=== PATIENT | female | born 1995 | race Caucasian/White ===

== ENCOUNTER 2020-06-06 08:31 | Day surgery (SDC) | payer OTHER, SELFPAY ==
[~2020-06-06] VITALS: Ht 167.6 cm; Wt 56.7 kg
[2020-06-06] MEDS ORDERED: BUPIVACAINE MPF 0.25% 10 ML VIAL INJ ONE (09:42)
[2020-06-06] MEDS ORDERED: LIDOCAINE 1% 500 MG/50 ML VIAL ONE ×2 (09:42)
[2020-06-06] MEDS ORDERED: BUPIVACAINE-MPF 0.25% 30 ML VIAL INJ ONE (10:50)
[2020-06-06] MEDS ORDERED: KETOROLAC 30 MG/ML VIAL ONE (11:00)
[2020-06-06] MEDS ORDERED: DEXAMETHASONE 4 MG/ML VIAL ONE (11:00)
[2020-06-06] MEDS ORDERED: MIDAZOLAM 2 MG/2 ML VIAL ONE (11:00)
[2020-06-06] MEDS ORDERED: MEPERIDINE 50 MG/ML SYR ONE (11:00)
[2020-06-06] MEDS ORDERED: ONDANSETRON 4 MG/2 ML VIAL ONE (11:00)
[2020-06-06] MEDS ORDERED: SUGAMMADEX SODIUM 200 MG/2 ML VIAL IV ONE (11:00)
[2020-06-06] MEDS ORDERED: fentaNYL citrate 0.05 MG/ML VIAL ONE (11:00)
[2020-06-06] MEDS ORDERED: ROCURONIUM 50 MG/5 ML VIAL IV ONE (11:00)
[2020-06-06] MEDS ORDERED: SUCCINYLCHOLINE CHLORIDE 200 MG/10 ML VIAL IVP ONE (11:00)
[2020-06-06] MEDS ORDERED: PROPOFOL 200 MG/20 ML VIAL IV ONE (11:00)
[2020-06-06] MEDS ORDERED: SEVOFLURANE 250 ML BTL INH ONE (11:00)
[2020-06-06] MEDS ORDERED: BUPIVACAINE-MPF/EPI 0.25% 10 ML VIAL INJ ONE (11:26)
[2020-06-06] MEDS ORDERED: ONDANSETRON 4 MG/2 ML VIAL IVP PRN (11:45)
[2020-06-06] MEDS ORDERED: LACTATED RINGERS 1,000 ML IV SCH (11:45)
[2020-06-06] MEDS ORDERED: HYDROmorphone 1 MG/ML AMP IVP PRN (11:45)
[2020-06-06] MEDS ORDERED: MEPERIDINE 25 MG/ML SYR IVP PRN (11:45)
[2020-06-06] MEDS ORDERED: diphenhydrAMINE 50 MG/ML VIAL IVP PRN (11:45)
== END 2020-06-06 13:38 | disposition home or self-care (01) ==
LOC: MMU 08:31 → MDS 08:31
PROVIDERS: ATTEND Surgery
DX: K80.10 Calculus of gallbladder with chronic cholecystitis without obstruction (principal); E03.9 Hypothyroidism, unspecified; Z20.828 Contact with and (suspected) exposure to other viral communicable diseases
CPT/HCPCS: 36415; 47562; 71045; 82374; 86886; 86900; 86901; J0330; J0690; J1100; J1885; J2001; J2175; J2250; J2405; J2704; J3010; J3490; J7030; J7060; U0003

== ENCOUNTER 2021-06-18 20:28 | Emergency (ER) | payer OTHER ==
[~2021-06-18] VITALS: Ht 167.6 cm; Wt 53.1 kg
[2021-06-18 20:38] VITALS: BP 136/71
--- NOTE | 2021-06-18 20:43 | NUR ---
PATIENT TO THE BATHROOM FOR URINE COLLECTION
--- NOTE | 2021-06-18 20:46 | NUR ---
PATIENT TO [facility]
--- NOTE | 2021-06-18 22:05 | NUR ---
SEEN AND EXAMINED BY ERMD WITH ORDERS, AND CARRED OUT.
--- NOTE | 2021-06-18 23:26 | NUR ---
PT TO [facility]
[2021-06-18] MEDS ORDERED: IBUP-2213 PO (23:29)
[2021-06-18] MEDS ORDERED: LIDOCAINE MPF 1% 10 MG/ML VIAL INJ ONE (23:35)
[2021-06-18] MEDS ORDERED: KETOROLAC 60 MG/2 ML VIAL IM ONE (23:40)
--- NOTE | 2021-06-18 23:50 | NUR ---
MEDICATED PER [facility]MDS ORDER, TOLERATED WELL,
[2021-06-19 00:20] VITALS: BP 120/71
--- NOTE | 2021-06-19 00:20 | NUR ---
Patient discharged with v/s stable. Written and verbal after care instructions given and explained. Patient alert, oriented and verbalized understanding of instructions. Ambulatory with steady gait. All questions addressed prior to discharge. ID band removed. Patient advised to follow up with PMD. Rx of MOTRIN 600MG given. Patient educated on indication of medication including possible reaction and side effects. Opportunity to ask questions provided and answered.
== END 2021-06-19 00:20 | disposition home or self-care (01) ==
LOC: MED 20:28
DX: R07.89 Other chest pain (principal); Z86.39 Personal history of other endocrine, nutritional and metabolic disease; Z90.49 Acquired absence of other specified parts of digestive tract; Z79.1 Long term (current) use of non-steroidal anti-inflammatories (NSAID)
CPT/HCPCS: 71101; 81002; 81025; 96372; 99283; J1885